=== PATIENT | female | born 1950 | race Caucasian/White ===

== ENCOUNTER 2019-04-18 11:32 | Outpatient (CLI) | payer MEDICARE ==
--- NOTE | 2019-05-10 16:47 | MMO ---
Bilateral MAMMO Bilat Screen [facility]. CLINICAL HISTORY: Patient is 69 years old and is seen for screening. The patient has no family history of breast cancer. The patient has no personal history of cancer. VIEWS: The views performed were: bilateral craniocaudal with tomosynthesis and bilateral mediolateral oblique with tomosynthesis. FILMS COMPARED: The present examination has been compared to a prior imaging study performed at [facility] on 10/11/2015. This study has been interpreted with the assistance of computer-aided detection. MAMMOGRAM FINDINGS: There are scattered fibroglandular densities. Benign calcifications are noted bilaterally. There are no suspicious masses, suspicious calcifications, or new areas of architectural distortion. IMPRESSION: THERE IS NO MAMMOGRAPHIC EVIDENCE OF MALIGNANCY. A ROUTINE FOLLOW-UP MAMMOGRAM IN 1 YEAR IS RECOMMENDED. THE RESULTS OF THIS EXAM WERE SENT TO THE PATIENT. ACR BI-RADS Category 2 - Benign finding MAMMOGRAPHY NOTE: 1. A negative mammogram report should not delay a biopsy if a dominant of clinically suspicious mass is present. 2. Approximately 10% to 15% of breast cancers are not detected by mammography. 3. Adenosis and dense breasts may obscure an underlying neoplasm. Reported by: IVANNA WILLOUGHBY MD Electonically Signed: [id number]
== END 2019-04-18 11:33 | disposition home or self-care (01) ==
LOC: BICMAMMO 11:32
PROVIDERS: ATTEND Nurse Practitioner Family
DX: Z12.31 Encounter for screening mammogram for malignant neoplasm of breast (principal)
CPT/HCPCS: 77063; 77067

== ENCOUNTER 2023-06-04 12:53 | Inpatient (IN) | payer MEDICARE ==
[2023-06-04 14:18] LABS: Prothrombin Time 56.6 sec (12.0-14.7)
[2023-06-04 14:32] LABS: PTT Greater than 250.0 sec (22.9-36.1)
[2023-06-04 14:54] LABS: #Basophils 0.1 thou/uL (0.0-0.2); #Eosinphils 0.1 thou/uL (0.0-0.7); #Neutrophils 8.4 thou/uL (1.40-6.50); %Basophils 0.8 % (0.0-1.0); %Eosinophils 1.2 % (0.0-10.0); %Lymphocytes 12.7 % (21.0-51.0); %Monocytes 9.2 % (0.0-10.0); %Neutrophils 75.6 % (42.0-75.0); Hematocrit 27.3 % (36.0-47.0); Hemoglobin 8.4 g/dL (12.0-16.0); Mean Corpuscular HGB CONC 30.8 g/dL (32.0-36.0); Mean Corpuscular Hemoglobin 29.2 pg (27.0-31.0); Mean Corpuscular Volume 94.8 fl (78.0-98.0); Mean Platelet Volume 10.4 fL (7.4-10.4); Platelet Count 384 10x3/uL (130-400); RBC Distribution Width 14.5 % (11.5-14.5); Red Blood Cell (RBC) Count 2.88 mill/uL (4.20-5.40); White Blood Cell (WBC) Count 11.1 10x3/uL (4.8-10.8)
[2023-06-04 15:10] LABS: ALT (SGPT) Less than 7 U/L (8-55); AST (SGOT) 15 U/L (5-34); Albumin 3.4 g/dL (3.4-4.8); Alkaline Phosphatase 126 U/L (40-110); Anion Gap 19 mmol/L (10-20); BUN (Urea Nitrogen) 17 mg/dL (9.8-20.1); Bilirubin, Total 0.3 mg/dL (0.2-1.2); Calc. Creatinine Clearance 0 mL/min (70-130); Calcium 9.5 mg/dL (7.8-10.44); Carbon Dioxide 23 mmol/L (23-31); Chloride 95 mmol/L (98-107); Estimated GFR 9; Globulin 3.8 g/dL (2.4-3.5); Glucose 144 mg/dL (83-110); Potassium 4.4 mmol/L (3.5-5.1); Protein, Total 7.2 g/dL (5.8-8.1); Sodium 133 mmol/L (136-145)
[2023-06-04] MEDS ORDERED: Clindamycin/D5W 900 mg/50 ml Premix Bag ONE (15:56)
[2023-06-04] MEDS ORDERED: Insulin Regular 300 UNITS/3 ML VIAL SC PRN (16:01)
[2023-06-04] MEDS ORDERED: Ondansetron ODT 4 MG TAB PO PRN (16:01)
[2023-06-04] MEDS ORDERED: Dextrose 50% Abboject 50 ML SYRINGE SLOW IVP PRN (16:01)
[2023-06-04] MEDS ORDERED: Dextrose 5% in Water 1,000 ML IV PRN (16:01)
[2023-06-04] MEDS ORDERED: Acetaminophen 325 MG TAB PO PRN (16:01)
[2023-06-04] MEDS ORDERED: Glucagon 1 MG/ML KIT IM PRN (16:01)
[2023-06-04 16:35] LABS: INR-International Normal Ratio 1.5; PTT 42.3 sec (22.9-36.1)
[2023-06-04 17:03] VITALS: BMI 32.0
[2023-06-04 17:50] LABS: Hemoglobin A1c 6.2 % (4.0-6.0)
[2023-06-04] MEDS: HYDROcodone/Acetaminophen 5/325 mg Tablet PO PRN (18:17)
[2023-06-04] MEDS ORDERED: hydrOXYzine 25 MG TAB PO SCH (20:15)
[2023-06-04] MEDS: Melatonin 3 MG TAB PO PRN (21:28)
[2023-06-04] MEDS: Famotidine 20 MG TAB PO SCH (21:28)
[2023-06-04] MEDS: Clindamycin/D5W 900 MG in Premix 1 BAG IVPB SCH (21:29)
[2023-06-05] MEDS: Clindamycin/D5W 900 MG in Premix 1 BAG IVPB SCH ×3 (05:27→20:58)
[2023-06-05 05:34] LABS: #Basophils 0.1 thou/uL (0.0-0.2); #Eosinphils 0.6 thou/uL (0.0-0.7); #Monocytes 1.4 thou/uL (0.11-0.59); #Neutrophils 5.6 thou/uL (1.40-6.50); %Eosinophils 5.6 % (0.0-10.0); %Lymphocytes 21.4 % (21.0-51.0); %Monocytes 14.1 % (0.0-10.0); %Neutrophils 57.5 % (42.0-75.0); Hematocrit 26.4 % (36.0-47.0); Hemoglobin 7.8 g/dL (12.0-16.0); Mean Corpuscular HGB CONC 29.5 g/dL (32.0-36.0); Mean Corpuscular Hemoglobin 28.5 pg (27.0-31.0); Mean Corpuscular Volume 96.4 fl (78.0-98.0); Mean Platelet Volume 9.7 fL (7.4-10.4); Platelet Count 382 10x3/uL (130-400); RBC Distribution Width 14.6 % (11.5-14.5); Red Blood Cell (RBC) Count 2.74 mill/uL (4.20-5.40); White Blood Cell (WBC) Count 9.8 10x3/uL (4.8-10.8)
[2023-06-05] MEDS: HYDROcodone/Acetaminophen 5/325 mg Tablet PO PRN ×2 (05:34→19:55)
[2023-06-05 06:07] LABS: ALT (SGPT) Less than 7 U/L (8-55); AST (SGOT) 12 U/L (5-34); Alkaline Phosphatase 107 U/L (40-110); Anion Gap 12 mmol/L (10-20); BUN (Urea Nitrogen) 22 mg/dL (9.8-20.1); Bilirubin, Total 0.2 mg/dL (0.2-1.2); Calc. Creatinine Clearance 12 mL/min (70-130); Calcium 9.1 mg/dL (7.8-10.44); Carbon Dioxide 29 mmol/L (23-31); Chloride 96 mmol/L (98-107); Estimated GFR 7; Globulin 3.3 g/dL (2.4-3.5); Glucose 116 mg/dL (83-110); Potassium 4.2 mmol/L (3.5-5.1); Protein, Total 6.3 g/dL (5.8-8.1); Sodium 133 mmol/L (136-145)
[2023-06-05] MEDS: Epoetin (ESRD) 10,000 UNITS/ML VIAL SC SCH ×2 (09:45→09:47)
[2023-06-05] MEDS ORDERED: fentaNYL PF 100 MCG/2 ML SYRINGE ONE (10:44)
[2023-06-05] MEDS ORDERED: fentaNYL 50 mcg/mL 1 mL Vial ONE ×4 (11:04→14:18)
[2023-06-05 11:45] LABS: INR-International Normal Ratio 1.5; PTT 44.6 sec (22.9-36.1); Prothrombin Time 18.4 sec (12.0-14.7)
[2023-06-05] MEDS ORDERED: SUGAMMADEX SODIUM 200 MG/2 ML VIAL ONE (11:48)
[2023-06-05] MEDS ORDERED: Ondansetron PF 4 MG/2 ML Vial ONE (12:30)
[2023-06-05] MEDS ORDERED: PROPOFOL 200 MG/20 ML VIAL ONE (12:30)
[2023-06-05] MEDS ORDERED: Lidocaine 1% PF 5 ML VIAL ONE (12:30)
[2023-06-05] MEDS ORDERED: Rocuronium Bromide 10 MG/ML (10ML VIAL) ONE (12:30)
[2023-06-05] MEDS ORDERED: Clindamycin/D5W 900 mg/50 ml Premix Bag ONE (13:07)
[2023-06-05] MEDS ORDERED: Promethazine HCl 25 MG/ML VIAL IM PRN (13:55)
[2023-06-05] MEDS ORDERED: Ondansetron HCl/PF 4 MG/2 ML Vial IVP PRN (13:55)
[2023-06-05] MEDS: hydrALAZINE 25 MG TAB PO SCH (19:54)
[2023-06-05] MEDS: Atorvastatin Calcium 10 MG TAB PO SCH (19:54)
[2023-06-05] MEDS: Famotidine 20 MG TAB PO SCH (19:54)
[2023-06-05] MEDS: Melatonin 3 MG TAB PO PRN (19:57)
[2023-06-06] MEDS: Clindamycin/D5W 900 MG in Premix 1 BAG IVPB SCH ×3 (05:15→21:13)
[2023-06-06] MEDS: HYDROcodone/Acetaminophen 5/325 mg Tablet PO PRN ×5 (05:54→23:29)
[2023-06-06] MEDS ORDERED: Heparin 10,000 UNITS/ 10 ML VIAL ONE (11:04)
[2023-06-06] MEDS: Morphine 2 MG/ML VIAL SLOW IVP PRN ×3 (13:32→21:14)
[2023-06-06] MEDS: Alogliptin 6.25 MG TAB PO SCH (13:48)
[2023-06-06] MEDS: hydrALAZINE 25 MG TAB PO SCH ×2 (13:48→21:11)
[2023-06-06] MEDS: NIFEdipine XL 30 MG ER.TAB PO SCH (13:48)
[2023-06-06] MEDS: Famotidine 20 MG TAB PO SCH (21:11)
[2023-06-06] MEDS: Atorvastatin Calcium 10 MG TAB PO SCH (21:12)
[2023-06-06] MEDS: Melatonin 3 MG TAB PO PRN ×2 (21:12→23:30)
[2023-06-07] MEDS: HYDROcodone/Acetaminophen 5/325 mg Tablet PO PRN ×4 (03:26→21:20)
[2023-06-07] MEDS: Morphine 2 MG/ML VIAL SLOW IVP PRN ×2 (05:37→11:24)
[2023-06-07] MEDS: Clindamycin/D5W 900 MG in Premix 1 BAG IVPB SCH ×2 (05:37→15:00)
[2023-06-07] MEDS: Alogliptin 6.25 MG TAB PO SCH (08:50)
[2023-06-07] MEDS: hydrALAZINE 25 MG TAB PO SCH ×2 (08:50→21:18)
[2023-06-07] MEDS: NIFEdipine XL 30 MG ER.TAB PO SCH (08:50)
[2023-06-07] MEDS ORDERED: Clindamycin 150 MG CAP PO SCH (14:45)
[2023-06-07] MEDS: Morphine 4 MG/ML VIAL SLOW IVP PRN (16:02)
[2023-06-07] MEDS ORDERED: Communication Order-Pharmacy FS SCH (17:03)
[2023-06-07 17:46] LABS: #Basophils 0.1 thou/uL (0.0-0.2); #Eosinphils 0.7 thou/uL (0.0-0.7); #Monocytes 1.2 thou/uL (0.11-0.59); %Basophils 1.1 % (0.0-1.0); %Eosinophils 6.9 % (0.0-10.0); %Lymphocytes 19.9 % (21.0-51.0); %Monocytes 11.5 % (0.0-10.0); %Neutrophils 59.9 % (42.0-75.0); Hematocrit 32.3 % (36.0-47.0); Hemoglobin 9.7 g/dL (12.0-16.0); Mean Corpuscular Hemoglobin 28.4 pg (27.0-31.0); Mean Corpuscular Volume 94.7 fl (78.0-98.0); Mean Platelet Volume 9.6 fL (7.4-10.4); Platelet Count 490 10x3/uL (130-400); RBC Distribution Width 14.7 % (11.5-14.5); Red Blood Cell (RBC) Count 3.41 mill/uL (4.20-5.40)
[2023-06-07 18:05] LABS: INR-International Normal Ratio 1.3; PTT 46.5 sec (22.9-36.1); Prothrombin Time 16.7 sec (12.0-14.7)
[2023-06-07 18:12] LABS: Anion Gap 17 mmol/L (10-20); BUN (Urea Nitrogen) 22 mg/dL (9.8-20.1); Calc. Creatinine Clearance 12 mL/min (70-130); Calcium 9.9 mg/dL (7.8-10.44); Carbon Dioxide 26 mmol/L (23-31); Chloride 97 mmol/L (98-107); Estimated GFR 7; Glucose 130 mg/dL (83-110); Phosphorus 4.1 mg/dL (2.3-4.7); Potassium 4.3 mmol/L (3.5-5.1); Sodium 136 mmol/L (136-145)
[2023-06-07] MEDS: Clindamycin 150 MG CAP PO SCH (21:17)
[2023-06-07] MEDS: Famotidine 20 MG TAB PO SCH (21:18)
[2023-06-07] MEDS: Atorvastatin Calcium 10 MG TAB PO SCH (21:18)
[2023-06-08] MEDS: Morphine 4 MG/ML VIAL SLOW IVP PRN ×2 (01:51→20:54)
[2023-06-08] MEDS: Clindamycin 150 MG CAP PO SCH ×3 (04:01→20:53)
[2023-06-08] MEDS: HYDROcodone/Acetaminophen 5/325 mg Tablet PO PRN ×3 (04:01→17:58)
[2023-06-08] MEDS ORDERED: Bupivacaine PF 0.5% 30 ML VIAL ONE (06:25)
[2023-06-08] MEDS ORDERED: SUGAMMADEX SODIUM 200 MG/2 ML VIAL ONE (06:55)
[2023-06-08] MEDS ORDERED: Norepinephrine 4 MG/4 ML VIAL ONE (06:55)
[2023-06-08] MEDS ORDERED: Midazolam HCl 2 mg/2 ml Vial ONE (06:55)
[2023-06-08] MEDS ORDERED: fentaNYL PF 100 MCG/2 ML SYRINGE ONE (06:55)
[2023-06-08 07:49] LABS: Anion Gap 16 mmol/L (10-20); BUN (Urea Nitrogen) 24 mg/dL (9.8-20.1); Calc. Creatinine Clearance 11 mL/min (70-130); Calcium 9.1 mg/dL (7.8-10.44); Carbon Dioxide 25 mmol/L (23-31); Chloride 98 mmol/L (98-107); Estimated GFR 6; Glucose 126 mg/dL (83-110); Potassium 4.3 mmol/L (3.5-5.1); Sodium 135 mmol/L (136-145)
[2023-06-08] MEDS ORDERED: Lidocaine 2% 6 ML (Jelly) SYR ONE (07:56)
[2023-06-08] MEDS ORDERED: PROPOFOL 200 MG/20 ML VIAL ONE (08:02)
[2023-06-08] MEDS ORDERED: Lidocaine 1% PF 5 ML VIAL ONE (08:02)
[2023-06-08] MEDS ORDERED: Ondansetron PF 4 MG/2 ML Vial ONE (08:02)
[2023-06-08] MEDS ORDERED: Heparin 10,000 UNITS/ 10 ML VIAL ONE (09:20)
[2023-06-08] MEDS: traMADol HCl 50 MG TAB PO PRN (09:53)
[2023-06-08] MEDS ORDERED: Morphine 4 MG/ML VIAL ONE (10:14)
[2023-06-08] MEDS ORDERED: Morphine 2 MG/ML VIAL SLOW IVP SCH (10:15)
[2023-06-08] MEDS ORDERED: Epoetin (ESRD) 10,000 UNITS/ML VIAL SC SCH (12:00)
[2023-06-08] MEDS ORDERED: Acetaminophen 325 MG TAB PO PRN (12:05)
[2023-06-08] MEDS ORDERED: Dextrose 5% in Water 1,000 ML IV PRN (12:07)
[2023-06-08] MEDS ORDERED: Dextrose 50% Abboject 50 ML SYRINGE SLOW IVP PRN (12:07)
[2023-06-08] MEDS ORDERED: Glucagon 1 MG/ML KIT IM PRN (12:08)
[2023-06-08] MEDS ORDERED: Insulin Regular 300 UNITS/3 ML VIAL SC PRN (12:09)
[2023-06-08] MEDS ORDERED: Ondansetron ODT 4 MG TAB PO PRN (12:11)
[2023-06-08] MEDS: Lidocaine 4% Topical Sol 50 ML BOT TOP SCH (18:02)
[2023-06-08] MEDS: Atorvastatin Calcium 10 MG TAB PO SCH (20:52)
[2023-06-08] MEDS: hydrALAZINE 25 MG TAB PO SCH (20:53)
[2023-06-08] MEDS: Melatonin 3 MG TAB PO PRN (20:53)
[2023-06-08] MEDS: Famotidine 20 MG TAB PO SCH (20:53)
[2023-06-09] MEDS: HYDROcodone/Acetaminophen 5/325 mg Tablet PO PRN ×4 (00:40→20:09)
[2023-06-09] MEDS: Morphine 4 MG/ML VIAL SLOW IVP PRN ×2 (03:05→09:59)
[2023-06-09] MEDS: Clindamycin 150 MG CAP PO SCH ×3 (05:27→22:27)
[2023-06-09] MEDS: hydrALAZINE 25 MG TAB PO SCH ×2 (07:47→20:06)
[2023-06-09] MEDS: Alogliptin 6.25 MG TAB PO SCH (07:47)
[2023-06-09] MEDS: NIFEdipine XL 30 MG ER.TAB PO SCH (07:47)
[2023-06-09] MEDS ORDERED: Iopamidol 370 76% 100 ML VIAL ONE (09:51)
[2023-06-09] MEDS: traMADol HCl 50 MG TAB PO PRN (13:58)
[2023-06-09] MEDS: Atorvastatin Calcium 10 MG TAB PO SCH (20:06)
[2023-06-09] MEDS: Famotidine 20 MG TAB PO SCH (20:07)
[2023-06-09] MEDS: Melatonin 3 MG TAB PO PRN (20:10)
[2023-06-09] MEDS ORDERED: Polyethylene Glycol 3350 17 GM Packet PO SCH (22:30)
[2023-06-10] MEDS: HYDROcodone/Acetaminophen 5/325 mg Tablet PO PRN ×3 (04:21→20:16)
[2023-06-10] MEDS: Clindamycin 150 MG CAP PO SCH ×3 (05:51→21:02)
[2023-06-10] MEDS: traMADol HCl 50 MG TAB PO PRN (07:38)
[2023-06-10] MEDS ORDERED: Heparin 10,000 UNITS/ 10 ML VIAL ONE (09:01)
[2023-06-10] MEDS: hydrALAZINE 25 MG TAB PO SCH ×2 (11:26→20:13)
[2023-06-10] MEDS: NIFEdipine XL 30 MG ER.TAB PO SCH (12:11)
[2023-06-10] MEDS: Bisacodyl 5 MG TAB PO SCH (12:13)
[2023-06-10] MEDS: Alogliptin 6.25 MG TAB PO SCH (12:13)
[2023-06-10] MEDS: Nitroglycerin 0.2mg/Hour PATCH TD SCH (12:23)
[2023-06-10] MEDS: Morphine 4 MG/ML VIAL SLOW IVP PRN (14:11)
[2023-06-10] MEDS: Lidocaine 4% Topical Sol 50 ML BOT TOP SCH (17:42)
[2023-06-10] MEDS: Atorvastatin Calcium 10 MG TAB PO SCH (20:12)
[2023-06-10] MEDS: Famotidine 20 MG TAB PO SCH (20:13)
[2023-06-10] MEDS: Melatonin 3 MG TAB PO PRN (21:06)
[2023-06-11] MEDS: Clindamycin 150 MG CAP PO SCH ×3 (05:20→20:51)
[2023-06-11] MEDS ORDERED: Fleet Saline Enema 133 ML BOT PR SCH (06:15)
[2023-06-11] MEDS: HYDROcodone/Acetaminophen 5/325 mg Tablet PO PRN (07:17)
[2023-06-11] MEDS ORDERED: Iopamidol 370 76% 100 ML VIAL ONE (09:15)
[2023-06-11] MEDS ORDERED: Lidocaine 1% (PF) 30 ML VIAL ONE (10:07)
[2023-06-11] MEDS: Alogliptin 6.25 MG TAB PO SCH (12:18)
[2023-06-11] MEDS: Bisacodyl 5 MG TAB PO SCH (12:18)
[2023-06-11] MEDS: NIFEdipine XL 30 MG ER.TAB PO SCH (12:19)
[2023-06-11] MEDS: hydrALAZINE 25 MG TAB PO SCH ×2 (12:19→20:51)
[2023-06-11] MEDS: Nitroglycerin 0.2mg/Hour PATCH TD SCH (12:20)
[2023-06-11] MEDS ORDERED: Heparin 10,000 UNITS/ 10 ML VIAL ONE ×2 (13:28→14:46)
[2023-06-11] MEDS ORDERED: Midazolam HCl 2 mg/2 ml Vial ONE (14:14)
[2023-06-11] MEDS ORDERED: fentaNYL 50 mcg/mL 1 mL Vial ONE (14:18)
[2023-06-11] MEDS ORDERED: Protamine Sulfate 50 MG/5 ML VIAL ONE (15:00)
[2023-06-11] MEDS: Famotidine 20 MG TAB PO SCH (20:50)
[2023-06-11] MEDS: Atorvastatin Calcium 10 MG TAB PO SCH (20:51)
[2023-06-12] MEDS: HYDROcodone/Acetaminophen 5/325 mg Tablet PO PRN ×4 (01:17→20:20)
[2023-06-12] MEDS: Clindamycin 150 MG CAP PO SCH ×3 (05:31→20:21)
[2023-06-12] MEDS: hydrALAZINE 25 MG TAB PO SCH ×2 (08:43→20:19)
[2023-06-12] MEDS: Nitroglycerin 0.2mg/Hour PATCH TD SCH (08:43)
[2023-06-12] MEDS ORDERED: Heparin 10,000 UNITS/ 10 ML VIAL ONE (08:59)
[2023-06-12] MEDS: NIFEdipine XL 30 MG ER.TAB PO SCH (12:45)
[2023-06-12] MEDS: Bisacodyl 5 MG TAB PO SCH (12:46)
[2023-06-12] MEDS: Alogliptin 6.25 MG TAB PO SCH (12:46)
[2023-06-12] MEDS: Polyethylene Glycol 3350 17 GM Packet PO PRN (14:06)
[2023-06-12] MEDS: Lidocaine 4% Topical Sol 50 ML BOT TOP SCH (16:17)
[2023-06-12] MEDS: Atorvastatin Calcium 10 MG TAB PO SCH (20:19)
[2023-06-12] MEDS: Famotidine 20 MG TAB PO SCH (20:19)
[2023-06-12] MEDS: Melatonin 3 MG TAB PO PRN (20:20)
[2023-06-12] MEDS: Heparin 5,000 UNITS/ML VIAL SC SCH ×2 (20:20→20:25)
[2023-06-13] MEDS: HYDROcodone/Acetaminophen 5/325 mg Tablet PO PRN ×3 (01:49→20:39)
[2023-06-13] MEDS: Clindamycin 150 MG CAP PO SCH ×3 (05:45→20:40)
[2023-06-13 08:10] LABS: #Basophils 0.1 thou/uL (0.0-0.2); #Eosinphils 0.2 thou/uL (0.0-0.7); #Monocytes 1.3 thou/uL (0.11-0.59); #Neutrophils 8.6 thou/uL (1.40-6.50); %Basophils 0.7 % (0.0-1.0); %Eosinophils 1.7 % (0.0-10.0); %Lymphocytes 17.4 % (21.0-51.0); %Monocytes 10.5 % (0.0-10.0); %Neutrophils 68.3 % (42.0-75.0); Hematocrit 26.9 % (36.0-47.0); Hemoglobin 8.3 g/dL (12.0-16.0); Mean Corpuscular HGB CONC 30.9 g/dL (32.0-36.0); Mean Corpuscular Volume 90.9 fl (78.0-98.0); Mean Platelet Volume 9.3 fL (7.4-10.4); Platelet Count 554 10x3/uL (130-400); RBC Distribution Width 15.5 % (11.5-14.5); Red Blood Cell (RBC) Count 2.96 mill/uL (4.20-5.40); White Blood Cell (WBC) Count 12.6 10x3/uL (4.8-10.8)
[2023-06-13 08:37] LABS: Anion Gap 17 mmol/L (10-20); BUN (Urea Nitrogen) 18 mg/dL (9.8-20.1); Calc. Creatinine Clearance 15 mL/min (70-130); Calcium 9.3 mg/dL (7.8-10.44); Carbon Dioxide 25 mmol/L (23-31); Chloride 96 mmol/L (98-107); Estimated GFR 9; Glucose 135 mg/dL (83-110); Sodium 134 mmol/L (136-145)
[2023-06-13] MEDS: Polyethylene Glycol 3350 17 GM Packet PO PRN (09:09)
[2023-06-13] MEDS: Nitroglycerin 0.2mg/Hour PATCH TD SCH (09:09)
[2023-06-13] MEDS: NIFEdipine XL 30 MG ER.TAB PO SCH (09:09)
[2023-06-13] MEDS: Alogliptin 6.25 MG TAB PO SCH (09:10)
[2023-06-13] MEDS: Bisacodyl 5 MG TAB PO SCH (09:10)
[2023-06-13] MEDS: hydrALAZINE 25 MG TAB PO SCH ×2 (09:10→20:41)
[2023-06-13] MEDS: Heparin 5,000 UNITS/ML VIAL SC SCH (09:25)
[2023-06-13] MEDS ORDERED: Hydrocortisone Acetate 25 MG Suppository PR PRN (15:42)
[2023-06-13] MEDS: Famotidine 20 MG TAB PO SCH (20:41)
[2023-06-13] MEDS: Atorvastatin Calcium 10 MG TAB PO SCH (20:41)
[2023-06-13] MEDS: Docusate 100 MG CAP PO SCH (20:41)
[2023-06-13] MEDS: traMADol HCl 50 MG TAB PO PRN (22:48)
[2023-06-14] MEDS: HYDROcodone/Acetaminophen 5/325 mg Tablet PO PRN ×4 (01:22→13:52)
[2023-06-14] MEDS: Clindamycin 150 MG CAP PO SCH ×2 (06:22→16:48)
[2023-06-14] MEDS: NIFEdipine XL 30 MG ER.TAB PO SCH (08:56)
[2023-06-14] MEDS: Alogliptin 6.25 MG TAB PO SCH (08:56)
[2023-06-14] MEDS: Bisacodyl 5 MG TAB PO SCH (08:56)
[2023-06-14] MEDS: hydrALAZINE 25 MG TAB PO SCH (08:56)
[2023-06-14] MEDS: Docusate 100 MG CAP PO SCH (08:56)
[2023-06-14] MEDS: Nitroglycerin 0.2mg/Hour PATCH TD SCH (08:57)
[2023-06-14] MEDS ORDERED: Metamucil PACK PO SCH (09:00)
[2023-06-14] MEDS ORDERED: Aspirin 81 mg Enteric Coated Tablet PO SCH (09:00)
[2023-06-14] MEDS: traMADol HCl 50 MG TAB PO PRN (10:48)
[2023-06-14 16:52] VITALS: BP 122/75; TEMP 97.6
== END 2023-06-14 17:15 | DRG 239 ==
LOC: ERS 12:53 → T4-A 15:57
PROVIDERS: ADMIT Family Medicine; ATTEND Internal Medicine
PROC: 0JB80ZZ Excision of Abdomen Subcutaneous Tissue and Fascia, Open Approach (ICD-10-PCS; 2023-06-05)
PROC: 0Y6N0Z9 Detachment at Left Foot, Partial 1st Ray, Open Approach (ICD-10-PCS; principal; 2023-06-08)
PROC: 047Q3ZZ Dilation of Left Anterior Tibial Artery, Percutaneous Approach (ICD-10-PCS; 2023-06-11)
PROC: 047N3ZZ Dilation of Left Popliteal Artery, Percutaneous Approach (ICD-10-PCS; 2023-06-11)
DX: E11.51 Type 2 diabetes mellitus with diabetic peripheral angiopathy without gangrene (principal); N18.6 End stage renal disease; I12.0 Hypertensive chronic kidney disease with stage 5 chronic kidney disease or end stage renal disease; M86.8X7 Other osteomyelitis, ankle and foot; I96 Gangrene, not elsewhere classified; L02.211 Cutaneous abscess of abdominal wall; L03.116 Cellulitis of left lower limb; E11.69 Type 2 diabetes mellitus with other specified complication; M79.3 Panniculitis, unspecified; S31.109A Unspecified open wound of abdominal wall, unspecified quadrant without penetration into peritoneal cavity, initial encounter; E11.22 Type 2 diabetes mellitus with diabetic chronic kidney disease; E11.649 Type 2 diabetes mellitus with hypoglycemia without coma; D63.1 Anemia in chronic kidney disease; E83.59 Other disorders of calcium metabolism; R19.00 Intra-abdominal and pelvic swelling, mass and lump, unspecified site; E78.5 Hyperlipidemia, unspecified; Z89.412 Acquired absence of left great toe; Z88.0 Allergy status to penicillin; Z79.4 Long term (current) use of insulin; Z79.890 Hormone replacement therapy; Z79.899 Other long term (current) drug therapy; Z99.2 Dependence on renal dialysis; Z98.890 Other specified postprocedural states
CPT/HCPCS: 36415; 36416; 37224; 37228; 75635; 75710; 80048; 80053; 83036; 83735; 84100; 85025; 85347; 85610; 85730; 87070; 87077; 87186; 87205; 88305; 90935; 93005; 93010; 96365; 97139; 99152; 99153; C1769; C1887; C1894; G0257; J1644; J1815; J2001; J2250; J2270; J2272; J2405; J2704; J2720; J3010; J3490; Q4081; Q9967; S0020

== ENCOUNTER 2023-07-01 07:26 | Inpatient (IN) | payer MEDICARE ==
[2023-07-01 08:18] LABS: #Basophils 0.1 thou/uL (0.0-0.2); #Eosinphils 0.2 thou/uL (0.0-0.7); #Monocytes 0.9 thou/uL (0.11-0.59); #Neutrophils 6.8 thou/uL (1.40-6.50); %Basophils 0.6 % (0.0-1.0); %Eosinophils 2.5 % (0.0-10.0); %Lymphocytes 16.3 % (21.0-51.0); Hematocrit 23.7 % (36.0-47.0); Hemoglobin 7.2 g/dL (12.0-16.0); Mean Corpuscular HGB CONC 30.4 g/dL (32.0-36.0); Mean Corpuscular Volume 88.8 fl (78.0-98.0); Mean Platelet Volume 9.2 fL (7.4-10.4); Platelet Count 381 10x3/uL (130-400); RBC Distribution Width 16.1 % (11.5-14.5); Red Blood Cell (RBC) Count 2.67 mill/uL (4.20-5.40); White Blood Cell (WBC) Count 9.6 10x3/uL (4.8-10.8)
[2023-07-01 08:41] LABS: Anion Gap 13 mmol/L (10-20); BUN (Urea Nitrogen) 24 mg/dL (9.8-20.1); Calc. Creatinine Clearance 0 mL/min (70-130); Calcium 9.7 mg/dL (7.8-10.44); Carbon Dioxide 28 mmol/L (23-31); Chloride 100 mmol/L (98-107); Estimated GFR 12; Glucose 77 mg/dL (83-110); Potassium 3.6 mmol/L (3.5-5.1); Sodium 137 mmol/L (136-145)
[2023-07-01] MEDS ORDERED: Glucagon 1 MG/ML KIT IM PRN (10:34)
[2023-07-01] MEDS ORDERED: Insulin Regular 300 UNITS/3 ML VIAL SC PRN (10:34)
[2023-07-01] MEDS ORDERED: Dextrose 50% Abboject 50 ML SYRINGE SLOW IVP PRN (10:34)
[2023-07-01] MEDS ORDERED: Ondansetron ODT 4 MG TAB PO PRN (10:34)
[2023-07-01] MEDS ORDERED: Dextrose 5% in Water 1,000 ML IV PRN (10:34)
[2023-07-01] MEDS ORDERED: fentaNYL PF 100 MCG/2 ML SYRINGE ONE (12:58)
[2023-07-01] MEDS ORDERED: Sodium Chloride 0.9% 100 ML ONE (13:11)
[2023-07-01] MEDS ORDERED: CEFAZOLIN 2 GM VIAL ONE (13:11)
[2023-07-01] MEDS ORDERED: Dexamethasone 20 MG/5 ML VIAL ONE (13:39)
[2023-07-01] MEDS ORDERED: Lidocaine 1% PF 5 ML VIAL ONE (13:39)
[2023-07-01] MEDS ORDERED: Ondansetron PF 4 MG/2 ML Vial ONE (13:39)
[2023-07-01] MEDS ORDERED: PROPOFOL 200 MG/20 ML VIAL ONE (13:39)
[2023-07-01] MEDS ORDERED: Bupivacaine PF 0.5% 30 ML VIAL ONE (14:14)
[2023-07-01] MEDS: Famotidine 20 MG TAB PO SCH (20:08)
[2023-07-01] MEDS: Atorvastatin Calcium 10 MG TAB PO SCH (20:08)
[2023-07-01] MEDS: Acetaminophen 325 MG TAB PO PRN (20:08)
[2023-07-01] MEDS: hydrALAZINE 25 MG TAB PO SCH (22:43)
[2023-07-02 02:52] VITALS: BMI 31.0
[2023-07-02] MEDS: Levothyroxine Sodium 75 MCG TAB PO SCH (05:08)
[2023-07-02 06:15] LABS: #Monocytes 0.7 thou/uL (0.11-0.59); #Neutrophils 13.8 thou/uL (1.40-6.50); %Basophils 0.2 % (0.0-1.0); %Lymphocytes 8.9 % (21.0-51.0); %Monocytes 4.6 % (0.0-10.0); %Neutrophils 85.7 % (42.0-75.0); Hematocrit 25.4 % (36.0-47.0); Hemoglobin 7.5 g/dL (12.0-16.0); Mean Corpuscular HGB CONC 29.5 g/dL (32.0-36.0); Mean Corpuscular Hemoglobin 26.4 pg (27.0-31.0); Mean Corpuscular Volume 89.4 fl (78.0-98.0); Mean Platelet Volume 9.4 fL (7.4-10.4); Platelet Count 438 10x3/uL (130-400); RBC Distribution Width 16.3 % (11.5-14.5); Red Blood Cell (RBC) Count 2.84 mill/uL (4.20-5.40); White Blood Cell (WBC) Count 16.1 10x3/uL (4.8-10.8)
[2023-07-02 06:46] LABS: Anion Gap 19 mmol/L (10-20); BUN (Urea Nitrogen) 35 mg/dL (9.8-20.1); Calc. Creatinine Clearance 14 mL/min (70-130); Calcium 9.6 mg/dL (7.8-10.44); Carbon Dioxide 22 mmol/L (23-31); Chloride 99 mmol/L (98-107); Estimated GFR 8; Glucose 132 mg/dL (83-110); Potassium 4.3 mmol/L (3.5-5.1); Sodium 136 mmol/L (136-145)
[2023-07-02] MEDS ORDERED: fentaNYL PF 100 MCG/2 ML SYRINGE ONE (08:36)
[2023-07-02] MEDS ORDERED: PROPOFOL 200 MG/20 ML VIAL ONE (09:01)
[2023-07-02] MEDS ORDERED: Ondansetron PF 4 MG/2 ML Vial ONE (09:01)
[2023-07-02] MEDS ORDERED: Lidocaine 1% PF 5 ML VIAL ONE (09:01)
[2023-07-02] MEDS ORDERED: fentaNYL 50 mcg/mL 1 mL Vial ONE (09:51)
[2023-07-02] MEDS: NIFEdipine XL 30 MG ER.TAB PO SCH (11:33)
[2023-07-02] MEDS: hydrALAZINE 25 MG TAB PO SCH ×2 (11:33→21:00)
[2023-07-02] MEDS: Epoetin (ESRD) 10,000 UNITS/ML VIAL SC SCH (11:33)
[2023-07-02] MEDS: Morphine 2 MG/ML VIAL SLOW IVP PRN ×2 (15:37→21:00)
[2023-07-02] MEDS: HYDROcodone/Acetaminophen 5/325 mg Tablet PO PRN ×2 (17:51→22:55)
[2023-07-02] MEDS: Cefepime 1 GM in Sodium Chloride 0.9% 100 ML IVPB SCH (17:53)
[2023-07-02] MEDS: Atorvastatin Calcium 10 MG TAB PO SCH (21:00)
[2023-07-03] MEDS: Morphine 2 MG/ML VIAL SLOW IVP PRN ×3 (01:05→12:00)
[2023-07-03] MEDS: Levothyroxine Sodium 75 MCG TAB PO SCH (06:26)
[2023-07-03 06:43] LABS: #Basophils 0.1 thou/uL (0.0-0.2); #Eosinphils 0.5 thou/uL (0.0-0.7); #Monocytes 1.2 thou/uL (0.11-0.59); #Neutrophils 9.7 thou/uL (1.40-6.50); %Basophils 0.5 % (0.0-1.0); %Eosinophils 3.7 % (0.0-10.0); %Lymphocytes 11.2 % (21.0-51.0); %Neutrophils 75.1 % (42.0-75.0); Hematocrit 24.7 % (36.0-47.0); Hemoglobin 7.3 g/dL (12.0-16.0); Mean Corpuscular HGB CONC 29.6 g/dL (32.0-36.0); Mean Corpuscular Hemoglobin 26.3 pg (27.0-31.0); Mean Corpuscular Volume 88.8 fl (78.0-98.0); Mean Platelet Volume 9.4 fL (7.4-10.4); Platelet Count 415 10x3/uL (130-400); RBC Distribution Width 16.2 % (11.5-14.5); Red Blood Cell (RBC) Count 2.78 mill/uL (4.20-5.40); White Blood Cell (WBC) Count 12.9 10x3/uL (4.8-10.8)
[2023-07-03 07:04] LABS: Anion Gap 16 mmol/L (10-20); BUN (Urea Nitrogen) 19 mg/dL (9.8-20.1); Calc. Creatinine Clearance 20 mL/min (70-130); Calcium 9.1 mg/dL (7.8-10.44); Carbon Dioxide 25 mmol/L (23-31); Chloride 100 mmol/L (98-107); Estimated GFR 13; Glucose 89 mg/dL (83-110); Potassium 3.9 mmol/L (3.5-5.1); Sodium 137 mmol/L (136-145)
[2023-07-03] MEDS: hydrALAZINE 25 MG TAB PO SCH ×2 (08:48→20:24)
[2023-07-03] MEDS: Gabapentin 300 MG CAP PO SCH ×3 (08:49→20:25)
[2023-07-03] MEDS: NIFEdipine XL 30 MG ER.TAB PO SCH (08:49)
[2023-07-03] MEDS: HYDROcodone/Acetaminophen 5/325 mg Tablet PO PRN (08:52)
[2023-07-03] MEDS: traMADol HCl 50 MG TAB PO PRN (12:09)
[2023-07-03] MEDS ORDERED: Morphine 2 MG/ML VIAL SLOW IVP PRN (12:22)
[2023-07-03] MEDS ORDERED: Morphine 4 MG/ML VIAL SLOW IVP PRN (12:28)
[2023-07-03] MEDS: Cefepime 1 GM in Sodium Chloride 0.9% 100 ML IVPB SCH (16:22)
[2023-07-03] MEDS: Sertraline 25 MG TAB PO SCH (20:23)
[2023-07-03] MEDS: Famotidine 20 MG TAB PO SCH (20:23)
[2023-07-03] MEDS: Acetaminophen 325 MG TAB PO PRN (20:24)
[2023-07-03] MEDS: Atorvastatin Calcium 10 MG TAB PO SCH (20:24)
[2023-07-04] MEDS: Levothyroxine Sodium 75 MCG TAB PO SCH (05:32)
[2023-07-04] MEDS ORDERED: Gabapentin 300 MG CAP PO SCH (07:18)
[2023-07-04] MEDS: hydrALAZINE 25 MG TAB PO SCH ×2 (08:16→20:34)
[2023-07-04] MEDS: NIFEdipine XL 30 MG ER.TAB PO SCH (08:16)
[2023-07-04] MEDS: Gabapentin 100 MG CAP PO SCH ×3 (08:17→20:34)
[2023-07-04] MEDS: Acetaminophen 325 MG TAB PO PRN (08:27)
[2023-07-04] MEDS: traMADol HCl 50 MG TAB PO PRN (13:14)
[2023-07-04] MEDS: Cefepime 1 GM in Sodium Chloride 0.9% 100 ML IVPB SCH (16:36)
[2023-07-04] MEDS ORDERED: FLU VACC QS2023(65UP)/MF59C/PF 60 MCG/0.5 ML SYRINGE IM ONE (17:00)
[2023-07-04] MEDS: Sertraline 25 MG TAB PO SCH (20:34)
[2023-07-04] MEDS: Atorvastatin Calcium 10 MG TAB PO SCH (20:34)
[2023-07-05] MEDS: Acetaminophen 325 MG TAB PO PRN ×2 (03:59→14:29)
[2023-07-05] MEDS: traMADol HCl 50 MG TAB PO PRN ×3 (03:59→14:28)
[2023-07-05] MEDS: Levothyroxine Sodium 75 MCG TAB PO SCH (05:51)
[2023-07-05] MEDS: Gabapentin 100 MG CAP PO SCH ×4 (07:38→21:30)
[2023-07-05] MEDS: NIFEdipine XL 30 MG ER.TAB PO SCH (07:38)
[2023-07-05] MEDS: hydrALAZINE 25 MG TAB PO SCH ×2 (07:38→21:30)
[2023-07-05] MEDS ORDERED: Heparin 10,000 UNITS/ 10 ML VIAL ONE (08:25)
[2023-07-05 09:13] LABS: #Basophils 0.1 thou/uL (0.0-0.2); #Eosinphils 0.4 thou/uL (0.0-0.7); #Monocytes 1.1 thou/uL (0.11-0.59); #Neutrophils 7.7 thou/uL (1.40-6.50); %Basophils 0.6 % (0.0-1.0); %Eosinophils 3.9 % (0.0-10.0); %Lymphocytes 16.7 % (21.0-51.0); %Monocytes 9.4 % (0.0-10.0); %Neutrophils 68.8 % (42.0-75.0); Hematocrit 24.7 % (36.0-47.0); Hemoglobin 7.3 g/dL (12.0-16.0); Mean Corpuscular HGB CONC 29.6 g/dL (32.0-36.0); Mean Corpuscular Hemoglobin 26.4 pg (27.0-31.0); Mean Corpuscular Volume 89.5 fl (78.0-98.0); Mean Platelet Volume 9.5 fL (7.4-10.4); Platelet Count 446 10x3/uL (130-400); RBC Distribution Width 16.3 % (11.5-14.5); Red Blood Cell (RBC) Count 2.76 mill/uL (4.20-5.40); White Blood Cell (WBC) Count 11.2 10x3/uL (4.8-10.8)
[2023-07-05 09:42] LABS: Anion Gap 16 mmol/L (10-20); BUN (Urea Nitrogen) 41 mg/dL (9.8-20.1); Calc. Creatinine Clearance 11 mL/min (70-130); Calcium 9.2 mg/dL (7.8-10.44); Carbon Dioxide 24 mmol/L (23-31); Chloride 99 mmol/L (98-107); Estimated GFR 6; Glucose 111 mg/dL (83-110); Potassium 4.5 mmol/L (3.5-5.1); Sodium 134 mmol/L (136-145)
[2023-07-05] MEDS: Cefepime 1 GM in Sodium Chloride 0.9% 100 ML IVPB SCH (16:09)
[2023-07-05] MEDS: HYDROcodone/Acetaminophen 10/325 mg Tablet PO PRN (21:31)
[2023-07-05] MEDS: Atorvastatin Calcium 10 MG TAB PO SCH (21:31)
[2023-07-05] MEDS: Sertraline 25 MG TAB PO SCH (21:31)
[2023-07-05] MEDS: Famotidine 20 MG TAB PO SCH (21:31)
[2023-07-06] MEDS: Levothyroxine Sodium 75 MCG TAB PO SCH (05:23)
[2023-07-06] MEDS: HYDROcodone/Acetaminophen 10/325 mg Tablet PO PRN ×2 (05:26→10:03)
[2023-07-06] MEDS: hydrALAZINE 25 MG TAB PO SCH ×2 (08:50→22:04)
[2023-07-06] MEDS: NIFEdipine XL 30 MG ER.TAB PO SCH (08:51)
[2023-07-06] MEDS: Gabapentin 100 MG CAP PO SCH ×3 (08:52→22:04)
[2023-07-06] MEDS: Morphine 2 MG/ML VIAL SLOW IVP PRN (11:45)
[2023-07-06] MEDS: Cefepime 1 GM in Sodium Chloride 0.9% 100 ML IVPB SCH (16:47)
[2023-07-06] MEDS: Sertraline 25 MG TAB PO SCH (22:03)
[2023-07-06] MEDS: HYDROcodone/Acetaminophen 5/325 mg Tablet PO PRN (22:04)
[2023-07-06] MEDS: Atorvastatin Calcium 10 MG TAB PO SCH (22:05)
[2023-07-07] MEDS: Levothyroxine Sodium 75 MCG TAB PO SCH (05:08)
[2023-07-07] MEDS: traMADol HCl 50 MG TAB PO PRN (05:08)
[2023-07-07] MEDS ORDERED: Heparin 10,000 UNITS/ 10 ML VIAL ONE (10:25)
[2023-07-07] MEDS ORDERED: Vancomycin Dose by Levels Sliding Scale (Wt 71-99) FS SCH (13:00)
[2023-07-07] MEDS ORDERED: Vancomycin (BATCH) 2 GM in Premix 1 BAG IVPB SCH (14:00)
[2023-07-07] MEDS ORDERED: Lidocaine 1% PF 5 ML VIAL ONE ×2 (15:02→15:38)
[2023-07-07] MEDS ORDERED: Ondansetron PF 4 MG/2 ML Vial ONE ×2 (15:02→15:38)
[2023-07-07] MEDS ORDERED: Rocuronium Bromide 10 MG/ML (10ML VIAL) ONE (15:02)
[2023-07-07] MEDS ORDERED: PROPOFOL 20 ML ONE (15:02)
[2023-07-07] MEDS ORDERED: Succinylcholine 200 MG/10 ml SYRINGE FS ONE ×2 (15:02→15:38)
[2023-07-07] MEDS ORDERED: Vasopressin 20 UNITS/ML VIAL ONE (15:09)
[2023-07-07] MEDS: Gabapentin 100 MG CAP PO SCH ×3 (15:15→20:07)
[2023-07-07] MEDS: NIFEdipine XL 30 MG ER.TAB PO SCH (15:20)
[2023-07-07] MEDS: hydrALAZINE 25 MG TAB PO SCH ×2 (15:20→20:08)
[2023-07-07] MEDS ORDERED: Albumin 5% 500 ML ONE (15:26)
[2023-07-07] MEDS ORDERED: fentaNYL 50 mcg/mL 1 mL Vial ONE ×4 (15:37→17:19)
[2023-07-07] MEDS ORDERED: PROPOFOL 200 MG/20 ML VIAL ONE (15:38)
[2023-07-07] MEDS ORDERED: HYDROmorphone 2 MG/ML VIAL ONE (16:15)
[2023-07-07] MEDS ORDERED: Bupivacaine PF 0.5% 30 ML VIAL ONE (16:16)
[2023-07-07] MEDS ORDERED: HYDROmorphone 2 MG/ML VIAL SLOW IVP PRN (16:29)
[2023-07-07] MEDS ORDERED: Ondansetron HCl/PF 4 MG/2 ML Vial IVP PRN (16:29)
[2023-07-07] MEDS ORDERED: Morphine Sulfate 2 MG/ML SYRINGE SLOW IVP PRN (16:29)
[2023-07-07] MEDS ORDERED: Promethazine HCl 25 MG/ML VIAL IM PRN (16:29)
[2023-07-07] MEDS: Ketorolac Tromethamine 30 MG/ML VIAL IVP SCH ×2 (18:41→23:29)
[2023-07-07] MEDS: Cefepime 1 GM in Sodium Chloride 0.9% 100 ML IVPB SCH ×2 (19:42→20:06)
[2023-07-07] MEDS: Acetaminophen 325 MG TAB PO PRN (20:07)
[2023-07-07] MEDS: Famotidine 20 MG TAB PO SCH (20:08)
[2023-07-07] MEDS: Atorvastatin Calcium 10 MG TAB PO SCH (20:09)
[2023-07-07] MEDS: Sertraline 25 MG TAB PO SCH (20:09)
[2023-07-07] MEDS ORDERED: Vancomycin 1 GM in Premix 1 BAG IVPB SCH (21:00)
[2023-07-08 05:44] LABS: #Basophils 0.1 thou/uL (0.0-0.2); #Eosinphils 0.5 thou/uL (0.0-0.7); #Monocytes 1.1 thou/uL (0.11-0.59); #Neutrophils 5.6 thou/uL (1.40-6.50); %Basophils 0.9 % (0.0-1.0); %Eosinophils 5.6 % (0.0-10.0); %Lymphocytes 22.2 % (21.0-51.0); %Monocytes 11.8 % (0.0-10.0); %Neutrophils 58.2 % (42.0-75.0); Mean Corpuscular HGB CONC 29.2 g/dL (32.0-36.0); Mean Corpuscular Hemoglobin 26.2 pg (27.0-31.0); Mean Corpuscular Volume 89.9 fl (78.0-98.0); Mean Platelet Volume 9.8 fL (7.4-10.4); Platelet Count 478 10x3/uL (130-400); RBC Distribution Width 16.5 % (11.5-14.5); Red Blood Cell (RBC) Count 2.67 mill/uL (4.20-5.40); White Blood Cell (WBC) Count 9.6 10x3/uL (4.8-10.8)
[2023-07-08 06:13] LABS: Anion Gap 16 mmol/L (10-20); BUN (Urea Nitrogen) 27 mg/dL (9.8-20.1); Calc. Creatinine Clearance 15 mL/min (70-130); Calcium 9.1 mg/dL (7.8-10.44); Carbon Dioxide 23 mmol/L (23-31); Chloride 104 mmol/L (98-107); Estimated GFR 9; Glucose 97 mg/dL (83-110); Magnesium 1.9 mg/dL (1.6-2.6); Phosphorus 3.7 mg/dL (2.3-4.7); Potassium 4.3 mmol/L (3.5-5.1); Sodium 139 mmol/L (136-145)
[2023-07-08] MEDS: Ketorolac Tromethamine 30 MG/ML VIAL IVP SCH ×4 (06:51→23:50)
[2023-07-08] MEDS: Levothyroxine Sodium 75 MCG TAB PO SCH (06:51)
[2023-07-08] MEDS: NIFEdipine XL 30 MG ER.TAB PO SCH (09:08)
[2023-07-08] MEDS: hydrALAZINE 25 MG TAB PO SCH ×2 (09:09→20:55)
[2023-07-08] MEDS: Gabapentin 100 MG CAP PO SCH ×2 (09:09→17:48)
[2023-07-08] MEDS: Morphine 2 MG/ML VIAL SLOW IVP PRN (09:11)
[2023-07-08] MEDS: HYDROcodone/Acetaminophen 5/325 mg Tablet PO PRN (12:52)
[2023-07-08 13:47] LABS: Vancomycin, Trough 31.4 ug/mL
[2023-07-08] MEDS: Sertraline 25 MG TAB PO SCH (20:55)
[2023-07-08] MEDS: Acetaminophen 500 MG TAB PO SCH (20:55)
[2023-07-08] MEDS: Cefepime 1 GM in Sodium Chloride 0.9% 100 ML IVPB SCH (20:56)
[2023-07-08] MEDS: Atorvastatin Calcium 10 MG TAB PO SCH (20:56)
[2023-07-09] MEDS: Ketorolac Tromethamine 30 MG/ML VIAL IVP SCH ×4 (05:43→23:42)
[2023-07-09] MEDS: Levothyroxine Sodium 75 MCG TAB PO SCH (05:43)
[2023-07-09] MEDS ORDERED: Heparin 10,000 UNITS/ 10 ML VIAL ONE (11:25)
[2023-07-09] MEDS: oxyCODONE 5 MG TAB PO PRN ×3 (12:24→20:23)
[2023-07-09] MEDS ORDERED: Vancomycin Diaylsis Sliding Scale (Wt 71-99) FS SCH (15:00)
[2023-07-09] MEDS: Acetaminophen 500 MG TAB PO SCH ×4 (15:15→20:22)
[2023-07-09] MEDS: Epoetin (ESRD) 10,000 UNITS/ML VIAL SC SCH (15:25)
[2023-07-09] MEDS: NIFEdipine XL 30 MG ER.TAB PO SCH (17:34)
[2023-07-09] MEDS: hydrALAZINE 25 MG TAB PO SCH ×2 (17:34→20:22)
[2023-07-09] MEDS: Sertraline 25 MG TAB PO SCH (20:22)
[2023-07-09] MEDS: Cefepime 1 GM in Sodium Chloride 0.9% 100 ML IVPB SCH ×2 (20:22→21:54)
[2023-07-09] MEDS: Atorvastatin Calcium 10 MG TAB PO SCH (20:22)
[2023-07-09] MEDS: Famotidine 20 MG TAB PO SCH (20:22)
[2023-07-10] MEDS: oxyCODONE 5 MG TAB PO PRN ×3 (03:14→13:11)
[2023-07-10] MEDS: Levothyroxine Sodium 75 MCG TAB PO SCH (05:36)
[2023-07-10] MEDS: Ketorolac Tromethamine 30 MG/ML VIAL IVP SCH ×2 (05:36→12:09)
[2023-07-10] MEDS: Acetaminophen 500 MG TAB PO SCH ×3 (09:16→21:03)
[2023-07-10] MEDS: NIFEdipine XL 30 MG ER.TAB PO SCH (09:16)
[2023-07-10] MEDS: hydrALAZINE 25 MG TAB PO SCH (09:17)
[2023-07-10] MEDS: Morphine 2 MG/ML VIAL SLOW IVP PRN (12:31)
[2023-07-10] MEDS ORDERED: Morphine 2 MG/ML VIAL SLOW IVP PRN (13:03)
[2023-07-10] MEDS ORDERED: oxyCODONE 5 MG TAB PO PRN ×3 (13:03→20:00)
[2023-07-10] MEDS ORDERED: Lorazepam 2 MG/ML VIAL SLOW IVP PRN (14:06)
[2023-07-10] MEDS ORDERED: ALPRAZolam 0.5 MG TAB PO SCH (14:15)
[2023-07-10] MEDS ORDERED: oxyCODONE 5 MG TAB PO SCH (14:45)
[2023-07-10] MEDS: ALPRAZolam 0.5 MG TAB PO SCH (21:03)
[2023-07-10] MEDS: Naproxen 500 MG TAB PO SCH (21:03)
[2023-07-11] MEDS: Levothyroxine Sodium 75 MCG TAB PO SCH (06:30)
[2023-07-11] MEDS: ALPRAZolam 0.5 MG TAB PO SCH ×2 (09:52→21:03)
[2023-07-11] MEDS: Naproxen 500 MG TAB PO SCH ×2 (09:52→21:04)
[2023-07-11] MEDS: Acetaminophen 500 MG TAB PO SCH ×3 (09:52→21:03)
[2023-07-11] MEDS ORDERED: oxyCODONE 5 MG TAB PO PRN (11:13)
[2023-07-11] MEDS ORDERED: ALPRAZolam 0.5 MG TAB PO PRN (11:18)
[2023-07-11] MEDS ORDERED: oxyCODONE 5 MG TAB PO SCH (21:00)
[2023-07-11] MEDS: Famotidine 20 MG TAB PO SCH (21:03)
[2023-07-11] MEDS: Sertraline 25 MG TAB PO SCH (21:04)
[2023-07-11] MEDS: oxyCODONE 5 MG TAB PO SCH (21:04)
[2023-07-12] MEDS: oxyCODONE 5 MG TAB PO PRN ×2 (01:42→15:35)
[2023-07-12] MEDS: Levothyroxine Sodium 75 MCG TAB PO SCH (05:30)
[2023-07-12] MEDS: Naproxen 500 MG TAB PO SCH ×2 (09:01→21:22)
[2023-07-12] MEDS: Acetaminophen 500 MG TAB PO SCH ×3 (09:01→21:22)
[2023-07-12] MEDS: oxyCODONE 5 MG TAB PO SCH ×2 (09:02→21:22)
[2023-07-12] MEDS: Sertraline 25 MG TAB PO SCH (21:22)
[2023-07-12] MEDS: ALPRAZolam 0.5 MG TAB PO SCH (21:22)
[2023-07-13] MEDS: Levothyroxine Sodium 75 MCG TAB PO SCH ×2 (05:43→06:08)
[2023-07-13] MEDS: oxyCODONE 5 MG TAB PO PRN (06:07)
[2023-07-13] MEDS: Acetaminophen 500 MG TAB PO SCH ×3 (08:32→20:40)
[2023-07-13] MEDS: oxyCODONE 5 MG TAB PO SCH ×2 (08:34→20:40)
[2023-07-13] MEDS: Naproxen 500 MG TAB PO SCH ×2 (08:35→20:40)
[2023-07-13] MEDS: Famotidine 20 MG TAB PO SCH (20:40)
[2023-07-13] MEDS: ALPRAZolam 0.5 MG TAB PO SCH (20:40)
[2023-07-13] MEDS: Sertraline 25 MG TAB PO SCH (20:40)
[2023-07-14] MEDS: Levothyroxine Sodium 75 MCG TAB PO SCH (04:57)
[2023-07-14] MEDS: oxyCODONE 5 MG TAB PO SCH (10:07)
[2023-07-14] MEDS: Acetaminophen 500 MG TAB PO SCH (10:07)
[2023-07-14] MEDS: Naproxen 500 MG TAB PO SCH (10:07)
[2023-07-14 11:19] VITALS: BP 126/60; TEMP 101.4
[2023-07-14] MEDS ORDERED: fentaNYL 50 mcg/mL 1 mL Vial SLOW IVP PRN (12:13)
[2023-07-14] MEDS ORDERED: GLYCOPYRROLATE/PF 0.2 MG/ML VIAL SLOW IVP PRN (12:14)
[2023-07-14] MEDS ORDERED: Lorazepam 2 MG/ML VIAL SLOW IVP PRN (12:15)
[2023-07-14] MEDS ORDERED: Acetaminophen 650 MG Suppository PR PRN (12:15)
[2023-07-14] MEDS ORDERED: Ondansetron PF 4 MG/2 ML Vial IVP PRN (12:15)
[2023-07-14] MEDS ORDERED: Haloperidol Lactate 5 MG/ML VIAL SLOW IVP PRN (12:15)
[2023-07-14] MEDS ORDERED: Scopolamine 1 mg/72 hour Patch TOP PRN (12:15)
[2023-07-14] MEDS ORDERED: Bisacodyl 10 MG SUPP PR PRN (12:15)
== END 2023-07-14 12:13 | disposition hospice, inpatient (51) | DRG 853 ==
LOC: ERS 07:26 → SDC 11:08 → SURG A 11:09 → OBSVTOIN 07-02 10:29
PROVIDERS: ADMIT Student in an Organized Health Care Education/Training Program; ATTEND Student in an Organized Health Care Education/Training Program
PROC: 0Y6N0Z9 Detachment at Left Foot, Partial 1st Ray, Open Approach (ICD-10-PCS; principal; 2023-07-01)
PROC: 0Y6N0ZB Detachment at Left Foot, Partial 2nd Ray, Open Approach (ICD-10-PCS; 2023-07-01)
PROC: 0Y6N0ZC Detachment at Left Foot, Partial 3rd Ray, Open Approach (ICD-10-PCS; 2023-07-01)
PROC: 0Y6N0ZD Detachment at Left Foot, Partial 4th Ray, Open Approach (ICD-10-PCS; 2023-07-01)
PROC: 0Y6N0ZF Detachment at Left Foot, Partial 5th Ray, Open Approach (ICD-10-PCS; 2023-07-01)
PROC: 0JB80ZZ Excision of Abdomen Subcutaneous Tissue and Fascia, Open Approach (ICD-10-PCS; 2023-07-02)
PROC: 3E03329 Introduction of Other Anti-infective into Peripheral Vein, Percutaneous Approach (ICD-10-PCS; 2023-07-02)
PROC: 0Y6J0Z1 Detachment at Left Lower Leg, High, Open Approach (ICD-10-PCS; 2023-07-07)
PROC: 30233J1 Transfusion of Nonautologous Serum Albumin into Peripheral Vein, Percutaneous Approach (ICD-10-PCS; 2023-07-07)
DX: A41.9 Sepsis, unspecified organism (principal); N18.6 End stage renal disease; L02.211 Cutaneous abscess of abdominal wall; Z66 Do not resuscitate; Z51.5 Encounter for palliative care; M86.9 Osteomyelitis, unspecified; E11.69 Type 2 diabetes mellitus with other specified complication; E11.22 Type 2 diabetes mellitus with diabetic chronic kidney disease; Z88.0 Allergy status to penicillin; I73.9 Peripheral vascular disease, unspecified; D63.1 Anemia in chronic kidney disease; Z98.890 Other specified postprocedural states; Z79.4 Long term (current) use of insulin; Z79.899 Other long term (current) drug therapy; E11.51 Type 2 diabetes mellitus with diabetic peripheral angiopathy without gangrene; E83.59 Other disorders of calcium metabolism; E78.5 Hyperlipidemia, unspecified; E03.9 Hypothyroidism, unspecified
CPT/HCPCS: 36415; 36416; 80048; 80202; 83735; 84100; 85025; 86850; 86900; 86901; 86921; 87070; 87077; 87186; 87205; 88305; 88307; 90935; 97139; 99284; G0257; J0692; J1100; J1170; J1644; J1885; J2272; J2405; J2704; J3010; J3490; P9045; S0020

== ENCOUNTER 2023-07-14 12:37 | Inpatient (IN) | payer OTHER ==
[2023-07-14] MEDS ORDERED: Bisacodyl 10 MG SUPP PR PRN (12:44)
[2023-07-14] MEDS ORDERED: GLYCOPYRROLATE/PF 0.2 MG/ML VIAL SLOW IVP PRN (12:45)
[2023-07-14] MEDS ORDERED: Lorazepam 2 MG/ML VIAL SLOW IVP PRN (12:45)
[2023-07-14] MEDS ORDERED: Acetaminophen 650 MG Suppository PR PRN (12:45)
[2023-07-14] MEDS ORDERED: Ondansetron PF 4 MG/2 ML Vial IVP PRN (12:45)
[2023-07-14] MEDS ORDERED: Hyoscyamine SL 0.125 MG TAB SL PRN (12:45)
[2023-07-14] MEDS ORDERED: Haloperidol Lactate 5 MG/ML VIAL SLOW IVP PRN (12:45)
[2023-07-14] MEDS ORDERED: fentaNYL 50 mcg/mL 1 mL Vial SLOW IVP PRN (12:46)
[2023-07-14 13:18] VITALS: BMI 31.0
[2023-07-15 08:34] VITALS: BP 127/58
[2023-07-15 11:40] VITALS: TEMP 103
[2023-07-15] MEDS ORDERED: Scopolamine 1 mg/72 hour Patch TOP PRN (15:05)
== END 2023-07-15 15:18 | disposition expired | DRG 951 ==
LOC: SURG A 12:37
PROVIDERS: ADMIT Family Medicine; ATTEND Family Medicine
DX: Z51.5 Encounter for palliative care (principal); N18.6 End stage renal disease; A41.9 Sepsis, unspecified organism; I12.0 Hypertensive chronic kidney disease with stage 5 chronic kidney disease or end stage renal disease; L02.211 Cutaneous abscess of abdominal wall; E11.51 Type 2 diabetes mellitus with diabetic peripheral angiopathy without gangrene; I10 Essential (primary) hypertension; E03.9 Hypothyroidism, unspecified; E78.5 Hyperlipidemia, unspecified; E11.22 Type 2 diabetes mellitus with diabetic chronic kidney disease
CPT/HCPCS: J3010; J3490